=== PATIENT | male | born 1985 | race Caucasian/White ===

== ENCOUNTER 2022-04-15 10:39 | Emergency (ER) | payer BC, SELFPAY ==
[2022-04-15 10:43] VITALS: BP 124/86; PULSE 104; RESP 16; TEMP 36.4; O2SAT 95
--- NOTE | 2022-04-15 10:50 | XR_ITS ---
WS: [id number], AP supine view, 04/15/2022 Clinical Data: constipation and abd pain Comparison: Acute abdomen series, 10/26/2014 Findings: There is a large amount of fecal material throughout the colon. No abnormal intra-abdominal masses or calcifications are seen. There is a small recording device overlying the right iliac crest. XR/XR KUB [id number] Impression: Large amount of fecal material throughout the colon.
--- NOTE | 2022-04-15 11:16 | ED_ITS ---
HPI - Abdominal Pain General: Chief Complaint: Abdominal Pain Stated Complaint: abd pain, possible constipation Time Seen by Provider: 04/15/22 10:40 History of Present Illness: Patient is in today for constipation. He reports that he has severe constipation for and has not had a bowel movement for at least 3-1/2 weeks. He reports that he is diabetic and takes chronic opioids for neuropathy so it is not uncommon for him to go a couple of weeks but this is the longest he has ever went. He reports that he has been taking MiraLAX and a couple of suppositories at home. He states that he has had a couple small soft bowel movements with those treatments but no other results. He did go to his doctor yesterday and said that they started him on Linzess. He reports that this morning he took milk of magnesia, Linzess, suppository with no effects. He reports that he has generalized abdominal pain. He has pain starting urination but he thinks that is from the constipation. He denies any fever, chills, nausea, vomiting. He states that his blood sugars have been running normal. He states that it is a little bit high this morning because he drank a Gatorade Associated Symptoms: Reports constipation and dysuria; Denies chills, fever(s), nausea, syncope and vomiting Review of Systems Const: Denies: fever(s), chills or body aches Eyes: Denies: change in vision or blurry vision ENMT: Denies: throat pain Card: Denies: chest pain, palpitations, irregular heart rhythm, li ghtheadedness or syncope Resp: Denies: dyspnea, productive cough or non-productive cough GI: Reports: abdominal pain and constipation; Denies: nausea or vomiting : Reports: dysuria; Denies: flank pain, urinary frequency, urinary urgency or urinary hesitancy Musc: Denies: neck pain or back pain Neuro: Denies: headache(s), numbness in extremities or weakness in extremities PFSH ED PFSH: Medical History Diabetes type 1, uncontrolled Surgical History No pertinent past surgical history Family History Father Diabetes Heart attack Neuropathy Hypertension Mother Diabetes Rheumatoid arthritis Social History Smoking and tobacco status: never smoked Second hand smoke exposure: No Smoking risk assessment/counseling performed?: No Alcohol intake: never Desire information about alcohol rehabilitation?: No Counseling given: No Desire information about substance/drug rehabilitation?: No Counseling given: No Adopted: No Lives independently: Yes Household members: spouse and children Housing: House Marital status: Number of children: 1 Highest education level completed: High School Graduate service: No Current occupational status: employed Physical Exam Const: COMMON NORMALS: no acute distress, patient oriented x3 and alert GENERAL APPEARANCE: cooperative ORIENTATION/CONSCIOUSNESS: Yes awake, Yes oriented to person, Yes oriented to place and Yes oriented to time Eye: COMMON NORMALS: Equal, round and reactive pupils present, EOMs intact bilaterally and conjunctivae normal GENERAL EYE: appearance normal, both eyes and all related structures ALIGNMENT: Yes alignment normal CONJUNCTIVA: Yes conjunctivae normal SCLERA: sclerae normal PUPIL: Yes Equal, round and reactive pupils present Neck/C-Spine: COMMON NORMALS: full ROM Resp: COMMON NORMALS: normal respiratory effort, No retractions, No use of accessory muscles and clear to auscultation bilaterally EFFORT & INSPECTION: Yes symmetric chest movement AUSCULTATION: clear to auscultation bilaterally Cardio: COMMON NORMALS: regular rate, regular rhythm, S1 normal heart sound present and S2 normal heart sound present RATE: regular rate RHYTHM: regular rhythm HEART SOUNDS: S1 normal heart sound present and S2 normal heart sound present GI: COMMON NORMALS: Normal to inspection, nondistended, normoactive bowel sounds present and Soft to palpation INSPECTION: Yes normal to inspection AUSCULTATION: Yes Hypoactive bowel sounds present PALPATION: Yes Soft to palpation and Yes Tenderness to palpation present (GI) Details: LLQ, RLQ, LUQ and RUQ : COMMON NORMALS: Yes no CVA tenderness BLADDER/KIDNEY EXAM: Yes no CVA tenderness Back/Pelvis: COMMON NORMALS: no CVA tenderness Neuro: COMMON NORMALS: patient oriented x3 SENSORIUM/ORIENTATION: Yes alert, Yes oriented to person, Yes oriented to place and Yes oriented to time Psych: COMMON NORMALS: cooperative Course Vital Signs: Vital signs: Vital Signs Temperature 97.6 F 04/15/22 10:43 Pulse Rate 104 H 04/15/22 10:43 Respiratory Rate 16 04/15/22 10:43 Blood Pressure 124/86 04/15/22 10:43 Pulse Oximetry 95 04/15/22 10:43 Oxygen Delivery Me thod 04/15/22 10:43 MDM - Abdominal Pain Medical Decision Making X-ray shows constipation. Labs with white blood cell count minimally elevated. I discussed the option of doing a CAT scan abdomen and pelvis and patient declines at this time. I do agree with that. Will treat to help with constipation given lactulose. Increase fiber in the diet increase p.o. liquids in the diet. If patient has not had a substantial bowel movement in the next 24 hours or should he have a bowel movement and continued to have significant abdominal pain he should return to the ER at that time. Return sooner as needed. Patient verbalizes understanding of instruction. Discharged to home in stable condition. Lab Data 04/15/22 12:05 04/15/22 12:05 Labs/Radiology: Radiology Impressions KUB X-Ray 04/15/22 10:50 Impression: Large amount of fecal material throughout the colon. Laboratory Results WBC 10.4 10^3/uL (4.0-10.0) H 04/15/22 12:05 RBC 4.85 10^6/uL (4.1-5.3) 04/15/22 12:05 Hgb 13.8 g/dL (11.7-16.6) 04/15/22 12:05 Hct 41.8 % (42.0-52.0) L 04/15/22 12:05 MCV 86.2 fl (80-94) 04/15/22 12:05 MCH 28.5 pg (28.0-34.0) 04/15/22 12:05 MCHC 33.0 g/dL (30.0-36.0) 04/15/22 12:05 RDW 11.6 % (12.1-15.1) L 04/15/22 12:05 Plt Count 263 10^3/cmm (130-400) 04/15/22 12:05 MPV 12.3 fL (7.4-10.4) H 04/15/22 12:05 Neut % (Auto) 69.1 % 04/15/22 12:05 Lymph % (Auto) 23.0 % 04/15/22 12:05 [place] % (Auto) 6.1 % 04/15/22 12:05 Eos % (Auto) 0.8 % 04/15/22 12:05 Baso % (Auto) 0.7 % 04/15/22 12:05 Neut # (Auto) 7.17 10^3/uL (1.8-7.7) 04/15/22 12:05 Lymph # (Auto) 2.4 10^3/uL (0.8-4.8) 04/15/22 12:05 [place] # (Auto) 0.6 10^3/uL (0.2-0.9) 04/15/22 12:05 Eos # (Auto) 0.1 10^3/uL (0.0-0.8) 04/15/22 12:05 Baso # (Auto) 0.1 10^3/uL (0.0-0.1) 04/15/22 12:05 Nucleated RBC % (auto) 0 % 04/15/22 12:05 Nucleated RBCs # 0.0 /100WBC 04/15/22 12:05 Sodium 136 mmol/L (136-145) 04/15/22 12:05 Potassium 4.7 mmol/L (3.5-5.1) 04/15/22 12:05 Chloride 100 mmol/L (98-107) 04/15/22 12:05 Carbon Dioxide 25 mmol/L (22-29) 04/15/22 12:05 Anion Gap 15.7 (5-19) 04/15/22 12:05 BUN 17 mg/dL (6-20) 04/15/22 12:05 Creatinine 1.2 mg/dL (0.7-1.2) 04/15/22 12:05 GFR Calculation 68.1 mL/min (90-130) L 04/15/22 12:05 Glucose 289 mg/dL (65-115) H 04/15/22 12:05 Calculated Osmolality 294 mOsm/kg (285-295) 04/15/22 12:05 Calcium 9.5 mg/dL (8.5-10.5) 04/15/22 12:05 Total Bilirubin 0.6 mg/dL (0.15-1.2) 04/15/22 12:05 AST 15 U/L (0-40) 04/15/22 12:05 ALT 21 U/L (0-41) 04/15/22 12:05 Alkaline Phosphatase 104 U/L (40-130) 04/15/22 12:05 Total Protein 7.1 g/dL (6.6-8.7) 04/15/22 12:05 Albumin 4.1 g/dL (3.5-5.2) 04/15/22 12:05 Globulin 3.0 g/dL (1.3-4.6) 04/15/22 12:05 Discharge Plan Discharge Patient Disposition: Home Clinical Impression: Constipation Condition: Stable Prescriptions: New lactulose 20 gram/30 mL solution 10 g PO BID PRN (Reason: constipation) Qty: 90 0RF No Action Levemir FlexTouch U-100 Insuln 100 unit/mL (3 mL) insulin pen 50 unit SUBCUT DAILY insulin aspart U-100 [Novolog FlexPen U-100 Insulin] 100 unit/mL (3 mL) insulin pen See Rx Instructions SUBCUT TID Rx Instructions: Sliding scale if needed. pregabalin 150 mg capsule 150 mg PO BID tramadol 50 mg tablet 100 mg PO BID tamsulosin 0.4 mg capsule 0.4 mg PO DAILY docusate sodium [DOK] 100 mg capsule 100 mg PO BID bupropion HCl 150 mg tablet sustained-release 12 hr 150 mg PO BID omeprazole 20 mg capsule,delayed release(DR/EC) 20 mg PO DAILY phentermine 37.5 mg tablet 37.5 mg PO DAILY Rx Instructions: must administer 30 minutes before or 1-2 hours after breakfast (DME) Omnipod Dash Pods (Gen 4) Cartridge See Rx Instructions .Route Qty: 45 0RF Rx Instructions: change every 2 days Levemir FlexTouch U-100 Insuln 100 unit/mL (3 mL) insulin pen 30 unit SUBCUT DAILY Qty: 3 0RF insulin aspart U-100 [Novolog U-100 Insulin aspart] 100 unit/mL solution See Rx Instructions .ROUTE .COMPLEX Qty: 150 3RF Rx Instructions: 100 units/day via pump; Discharge Orders: Discharge ED (Routine); Ordered 04/15/22 Ordered By: Megan Robison Referrals: Robison,ROSHAN Chan [Primary Care Provider] - Discharge Diet: Diabetic Discharge Activity: Increase activity as tolerated Patient Instructions: Constipation - Adult Activity Restrictions/Additional Instructions: Take lactulose as directed. Your first dose was given here in the ER today. Make sure that you are drinking plenty of water. Movement and walking will help stimulate bowel activity. You can continue your Linzess. Follow-up with primary care provider. Return to the ER as needed for new or worsening symptoms including, but not limited to development of fever, worsening abdominal pain, persisting abdominal pain even after you are able to have a large bowel movement, blood in your stools. Coding Level of Care Code ED Independent Video Producer for Sushma Mendiola
--- NOTE | 2022-04-15 11:23 | PC.NURSE ---
report taken from GRETEL Huff @ [id number]
[2022-04-15 12:26] LABS: Basophils # 0.1 10^3/uL (0.0-0.1); Basophils % 0.7 %; Eosinophils # 0.1 10^3/uL (0.0-0.8); Eosinophils % 0.8 %; Hematocrit 41.8 % (42.0-52.0); Hemoglobin 13.8 g/dL (11.7-16.6); Lymphocytes # 2.4 10^3/uL (0.8-4.8); Mean Corpuscular Hemoglobin 28.5 pg (28.0-34.0); Mean Corpuscular Volume 86.2 fl (80-94); Mean Platelet Volume 12.3 fL (7.4-10.4); Monocytes # 0.6 10^3/uL (0.2-0.9); Monocytes % 6.1 %; Neutrophils # 7.17 10^3/uL (1.8-7.7); Neutrophils % 69.1 %; Nucleated Red Blood Cells % 0 %; Platelet Count 263 10^3/cmm (130-400); Red Blood Count 4.85 10^6/uL (4.1-5.3); Red Cell Distribution Width 11.6 % (12.1-15.1); White Blood Count 10.4 10^3/uL (4.0-10.0)
[2022-04-15 12:33] LABS: Alanine Aminotransferase 21 U/L (0-41); Albumin Level 4.1 g/dL (3.5-5.2); Alkaline Phosphatase 104 U/L (40-130); Anion Gap 15.7 (5-19); Aspartate Amino Transferase 15 U/L (0-40); Blood Urea Nitrogen 17 mg/dL (6-20); Calcium 9.5 mg/dL (8.5-10.5); Carbon Dioxide 25 mmol/L (22-29); Chloride 100 mmol/L (98-107); Glomerular Filtration Rate 68.1 mL/min (90-130); Glucose 289 mg/dL (65-115); Osmolality Calculated 294 mOsm/kg (285-295); Potassium 4.7 mmol/L (3.5-5.1); Sodium 136 mmol/L (136-145); Total Bilirubin 0.6 mg/dL (0.15-1.2); Total Protein 7.1 g/dL (6.6-8.7)
[2022-04-15] MEDS: lactulose oral liq 20 gm/30 mL UDC PO (13:28)
== END 2022-04-15 13:39 | disposition home or self-care (01) ==
PROVIDERS: Emergency Provider Nurse Practitioner Family; PCP Nurse Practitioner Family
DX: K59.00 Constipation, unspecified (principal); Z79.4 Long term (current) use of insulin; E10.9 Type 1 diabetes mellitus without complications
CPT/HCPCS: 36415; 74018; 80053; 85025; 99284